=== PATIENT | female | born 1995 | race Caucasian/White ===

== ENCOUNTER 2023-01-13 08:43 | Outpatient (REF) | payer OTHER, SELFPAY ==
[2023-01-16 12:09] LABS: Age Gdln ACOG Testing Note (.); IGP, rfx Aptima HPV ASCU Note (.)
== END 2023-01-13 08:44 | disposition home or self-care (01) ==
LOC: LAB 08:43
PROVIDERS: Visit Provider Physician Assistant
DX: Z01.419 Encounter for gynecological examination (general) (routine) without abnormal findings (principal)
CPT/HCPCS: G0145

== ENCOUNTER 2023-04-03 07:13 | Outpatient (OUT) | payer OTHER, SELFPAY ==
[2023-04-03 07:47] LABS: Basophils Percent Auto 0.6 % (0.2-2.0); Eosinophils Absolute Auto 0.1 10^3/uL (0.0-0.7); Hematocrit 40.4 % (36.0-48.0); Immature Granulocytes Abs Auto 0.02 10^3/uL (0.00-0.03); Immature Granulocytes Pct Auto 0.3 % (0.0-0.5); Lymphocytes Absolute Auto 1.8 10^3/uL (1.2-3.8); Lymphocytes Percent Auto 28.4 % (20.5-60.0); Mean Corpuscular HGB Conc 34.7 g/dL (29.9-35.2); Mean Corpuscular Hemoglobin 30.3 pg (26.7-34.0); Mean Corpuscular Volume 87.4 fL (81.0-99.0); Mean Platelet Volume 9.2 fL (9.5-13.5); Monocytes Absolute Auto 0.4 10^3/uL (0.3-0.8); Monocytes Percent Auto 5.4 % (1.7-12.0); Neutrophils Absolute Auto 4.1 10^3/uL (1.4-6.5); Neutrophils Percent Auto 63.3 % (43.0-75.0); Platelet Count 183 10^3/uL (150-450); Red Blood Count 4.62 10^6/uL (4.20-5.40); Red Cell Distribution Width 11.9 % (11.0-15.0); White Blood Count 6.5 10^3/uL (4.0-11.0)
[2023-04-03 09:02] LABS: Alanine Aminotransferase 18 U/L (14-59); Albumin Level 3.6 g/dL (3.4-5.0); Alkaline Phosphatase 60 U/L (46-116); Anion Gap 9.6; Aspartate Amino Transferase 10 U/L (15-37); BUN Creatinine Ratio 15.6; Bilirubin Total 1.6 mg/dL (0.2-1.0); Carbon Dioxide 27.8 mmol/L (21.0-32.0); Chloride 103 mmol/L (98-107); Chol HDL Ratio 2.5; Cholesterol 149 mg/dL (<=200); Estimated GFR (African America >60 (>=60); Estimated GFR (Non-African Ame >60 (>=60); Globulin 3.7 g/dL; Glucose 88 mg/dL (74-106); HDL Cholesterol 59 mg/dL (40-60); LDL Cholesterol Calculated 78.8 mg/dL; Potassium 3.4 mmol/L (3.5-5.1); Sodium 137 mmol/L (136-145); Thyroid Stimulating Hormone 2.571 uIU/mL (0.358-3.740); Total Protein 7.3 g/dL (6.4-8.2); Triglycerides 56 mg/dL (<=150); VLDL CHOLESTEROL 11.2 mg/dL
== END 2023-04-03 07:14 | disposition home or self-care (01) ==
LOC: LAB 07:13
PROVIDERS: PCP Family Medicine; Visit Provider Family Medicine
DX: Z00.00 Encounter for general adult medical examination without abnormal findings (principal)
CPT/HCPCS: 36415; 80053; 80061; 84443; 85025

== ENCOUNTER 2023-06-05 07:16 | Outpatient (OUT) | payer OTHER, SELFPAY ==
--- NOTE | 2023-06-05 07:19 | US_ITS ---
The [address] [address] Patient Name: MAGAN PARKER MRN: [id number] date: 1995 Sex: F Assigned Patient Location: US Current Patient Location: US Accession/Order Number: [id number] Exam Date: 06/05/2023 07:20 Report Date: 06/05/2023 08:33 At the request of: ALANA PEPE Procedure: US right upper quadrant EXAM: US right upper quadrant HISTORY: . Right lower quadrant pain R10.31 . COMPARISON: Grayscale and color imaging was performed TECHNIQUE: Grayscale and color imaging was performed. FINDINGS: The liver is normal in size. Color-flow is noted. No masses are noted. The gallbladder appears normal. No stones or sludge is identified. Common bile duct measures 1.3 mm. The pancreas appears normal. Right kidney measures 11.2 x 4 x 4.9 cm. Color-flow is noted. No solid renal cortical masses or hydronephrosis is noted. No fluid is noted in the right upper quadrant. US/US right upper quadrant IMPRESSION: Normal ultrasound of the right upper quadrant. Electronically authenticated by: WIN BLACKBURN Date: 06/05/2023 08:33
--- NOTE | 2023-06-05 07:19 | US_ITS ---
The [address] [address] Patient Name: MAGAN PARKER MRN: [id number] date: 1995 Sex: F Assigned Patient Location: US Current Patient Location: US Accession/Order Number: [id number] Exam Date: 06/05/2023 07:20 Report Date: 06/05/2023 08:34 At the request of: ALANA PEPE Procedure: US appendix EXAM: US appendix HISTORY: . Right lower quadrant pain R10.31 . COMPARISON: None. TECHNIQUE: [place] scale and color imaging was performed FINDINGS: Ultrasound of the right lower quadrant demonstrates no discrete solid or cystic masses. No abnormal fluid collection is noted. The appendix was not identified. US/US appendix IMPRESSION: No discrete masses noted in the right lower quadrant. The appendix was not identified. If further evaluation of the right lower quadrant as clinically indicated CT is suggested. Electronically authenticated by: WIN BLACKBURN Date: 06/05/2023 08:34
== END 2023-06-05 07:17 | disposition home or self-care (01) ==
LOC: US 07:17
PROVIDERS: PCP Family Medicine; Visit Provider Family Medicine
DX: R10.31 Right lower quadrant pain (principal)
CPT/HCPCS: 76705